=== PATIENT | male | born 1955 | race Caucasian/White ===

== ENCOUNTER 2016-10-09 09:27 | Emergency (ER) | payer MEDICAID ==
[~2016-10-09] VITALS: Ht 177.8 cm; Wt 90.0 kg
[2016-10-09 09:30] VITALS: BP 193/93; PULSE 89; RESP 22; TEMP 97.7; O2SAT 94
[2016-10-09] MEDS ORDERED: ZITHTAB PO (09:46)
[2016-10-09] MEDS ORDERED: VENTAER INH ×2 (09:46→09:53)
--- NOTE | 2016-10-09 09:46 | PD ---
HPI Chief Complaint: Respiratory Symptoms Time Seen by Provider: 09:38 Travel History International Travel<30 days: No Contact w/Intl Traveler<30days: No Traveled to known affect area: No History of Present Illness HPI Patient is a 61-year-old male with history of COPD who presents emergency Department with complaint of shortness of breath. Patient is here visiting from [place]. He states he ran out of his albuterol. He feels increasingly short of breath, describes this as wheezing, cough productive of yellowish sputum. This is typical for him when he runs out of his albuterol. Patient is still smoking, proximal leg one pack per day. He denies any chest pain, fevers, chills. Pain, swelling, history of DVT or PE. PFSH Past Medical History COPD: Yes Respiratory: Yes Past Surgical History Other Surgery: Yes (finger surgery) Social History Tobacco Use: Yes Allergies-Medications (Allergen,Severity, Reaction): Coded Allergies: Aspirin (Verified Allergy, Unknown, Hives, 10/09/16) Review of Systems Except as stated in HPI: all other systems reviewed are Neg Physical Exam Narrative GENERAL: Obese middle-aged male appearing older than stated age smelling heavily of tobacco no acute distress SKIN: Focused skin assessment warm/dry. HEAD: Normocephalic. EYES: No scleral icterus. No injection or drainage. ENT: Poor dentition. Mucous membranes pink and moist. NECK: Supple CARDIOVASCULAR: Regular rate and rhythm. No murmur appreciated. RESPIRATORY: No accessory muscle use. Minimal expiratory wheeze, occasional cough nonproductive GASTROINTESTINAL: Obese MUSCULOSKELETAL: No obvious deformities. no edema. NEUROLOGICAL: Awake and alert. Normal speech. PSYCHIATRIC: Appropriate mood and affect; insight and judgment normal. Data Data Last Documented VS Vital Signs Date Time Temp Pulse Resp B/P Pulse Ox O2 Delivery O2 Flow Rate FiO2 10/09/16 09:30 97.7 89 22 193/93 94 MDM Medical Decision Making Medical Screen Exam Complete: Yes Emergency Medical Condition: Yes Medical Record Reviewed: Yes Differential Diagnosis 61-year-old male with history of COPD here with 3 days of cough, wheezing, shortness of breath after running out of albuterol. Differential includes medication nonadherence, COPD exacerbation, viral syndrome, pneumonia and less likely PE. Narrative Course Exam benign, patient offered prednisone but he declined stating that he gets really galvan, hungry, and has had bad heartburn in the past. Would like to try and avoid this, states that he is only ran out of his albuterol, and that's why he is having symptoms. Given his increasing productive cough, will prescribe Z- Isaac in addition to albuterol. Patient encouraged to quit smoking. Diagnosis Primary Impression: COPD exacerbation Additional Impression: Tobacco abuse Referrals: [facility] as needed Primary Care Physician as needed Additional Instructions: Albuterol, antibiotics as prescribed. I encourage you to quit smoking as discussed. Med/Other Pt SpecificInfo: Prescription(s) given Scripts Azithromycin (Zithromax Z-Isaac)250 Mg [id number] Mg PO DIRECTED #1 DSPK Ref 0 500 MG (2 tabs) day 1, then 1 tab days 2-5. Prov:Elke Bradshaw MD 10/09/16 Albuterol 18 GM Inh (Ventolin Hfa 18 GM Inh)90 Mcg/Act Aer2 Puff INH Q4H PRN ( SHORTNESS OF BREATH) #1 INHALER Ref 0 Prov:Elke Bradshaw MD 10/09/16 Disposition: 01 DISCHARGE HOME Condition: Stable Elke Bradshaw MD October 09, 2016 09:46
[2016-10-09 09:47] VITALS: BP 166/82; PULSE 85; PULSE 90; RESP 28; O2SAT 95
[2016-10-09] MEDS ORDERED: MONT10TA4 PO ×2 (09:53→09:55)
[2016-10-09] MEDS ORDERED: FLUTI110I INH ×2 (09:53→10:00)
== END 2016-10-09 10:01 | disposition home or self-care (01) ==
LOC: NEPD 09:27
DX: J44.1 Chronic obstructive pulmonary disease with (acute) exacerbation (principal); F17.200 Nicotine dependence, unspecified, uncomplicated; Z87.09 Personal history of other diseases of the respiratory system
CPT/HCPCS: 99284